=== PATIENT | male | born 2000 | race Caucasian/White ===

== ENCOUNTER 2018-09-25 20:06 | Emergency (ER) | payer OTHER ==
[~2018-09-25] VITALS: Ht 188 cm; Wt 113.6 kg
[2018-09-25] MEDS ORDERED: ACETAMINOPHEN 325 MG TAB PO ONE (21:00)
[2018-09-25] MEDS ORDERED: NS 1,000 ML IV ONE (23:15)
[2018-09-25] MEDS ORDERED: KETOROLAC 30 MG/ML VIAL (J1885) IV ONE (23:15)
[2018-09-25] MEDS ORDERED: METOCLOPRAMIDE INJ 10MG/2ML VIAL (J2765) IV ONE (23:15)
[2018-09-25] MEDS ORDERED: diphenhydrAMINE INJ 50MG/ML VIAL (J1200) IV ONE (23:15)
[2018-09-26 00:08] LABS: BASO % 0.3 % (0.0-1.0); EOS % 0.2 % (0.0-3.0); HEMATOCRIT 40.7 % (42.0-52.0); HEMOGLOBIN 14.1 g/dl (13.5-17.5); LYMPH # 1.7 10^3/uL (1.5-6.5); MEAN CORPUSCULAR HEMOGLOBIN 28.7 pg (27.0-33.0); MEAN CORPUSCULAR HGB CONC 34.6 g/dl (32.0-36.5); MEAN CORPUSCULAR VOLUME 82.9 fl (80.0-96.0); MONO # 1.5 10^3/uL (0.0-0.8); MONO % 12.8 % (0.0-5.0); NEUTROPHILS # 8.2 10^3/uL (1.8-7.7); NEUTROPHILS % 70.9 % (36.0-66.0); PLATELET COUNT, AUTOMATED 205 10^3/uL (150-450); RED BLOOD COUNT 4.91 10^6/uL (4.30-6.10); WHITE BLOOD COUNT 11.6 10^3/uL (4.0-10.0)
[2018-09-26 00:25] LABS: ALT/SGPT 20 U/L (12-78); BILIRUBIN,DIRECT 0.4 MG/DL (0.0-0.2); BILIRUBIN,TOTAL 2.1 MG/DL (0.2-1.0); BLOOD UREA NITROGEN 14 MG/DL (7-18); CARBON DIOXIDE LEVEL 25 MEQ/L (21-32); CHLORIDE LEVEL 101 MEQ/L (98-107); CREATININE FOR GFR 1.13 MG/DL (0.70-1.30); GLUCOSE, FASTING 97 MG/DL (70-100); POTASSIUM SERUM 3.8 MEQ/L (3.5-5.1); SODIUM LEVEL 138 MEQ/L (136-145); TOTAL PROTEIN 7.5 GM/DL (6.4-8.2)
[2018-09-26] MEDS ORDERED: LevoFLOXacin 750 MG TABLET PO ONE (01:45)
[2018-09-26] MEDS ORDERED: LEVA750T7 PO (01:46)
[2018-09-26 02:08] VITALS: BP 122/62
--- NOTE | 2018-09-26 07:46 | REP ---
Clinical: Systemic inflammatory response syndrome. Technique: PA and lateral. Findings: Very subtle right lower lobe infiltrate noted. No effusion. No pneumothorax. Mediastinum and cardiac silhouette normal. Skeletal structures intact. Impression: Right lower lobe infiltrate. Follow-up to resolution recommended. Electronically Signed by Bryon Schwab MD 09/26/2018 07:37 A
== END 2018-09-26 02:10 | disposition home or self-care (01) ==
LOC: M ED 20:06
DX: J18.9 Pneumonia, unspecified organism (principal)
CPT/HCPCS: 71046; 80048; 80076; 83605; 85025; 87040; 87486; 87581; 87633; 87798; 87880; 93041; 94760; 96361; 96374; 96375; 99284; J1200; J1885; J2765

== ENCOUNTER 2022-10-12 18:25 | Emergency (ER) | payer BC, OTHER ==
[~2022-10-12] VITALS: Ht 185.4 cm; Wt 114.8 kg
[~2022-10-12 18:25] MED LIST: LEVA750T7 PO
[2022-10-12 20:03] LABS: BASO # 0.1 10^3/uL (0.0-0.2); BASO % 0.3 % (0.0-1.0); EOS % 0.1 % (0.0-3.0); HEMATOCRIT 44.6 % (42.0-52.0); HEMOGLOBIN 15.4 g/dl (13.5-17.5); LYMPH # 1.5 10^3/uL (1.5-5.0); LYMPH % 8.4 % (24.0-44.0); MEAN CORPUSCULAR HEMOGLOBIN 29.5 pg (27.0-33.0); MEAN CORPUSCULAR HGB CONC 34.5 g/dl (32.0-36.5); MEAN CORPUSCULAR VOLUME 85.4 fl (80.0-96.0); MONO # 0.6 10^3/uL (0.0-0.8); MONO % 3.1 % (2.0-8.0); NEUTROPHILS # 15.5 10^3/uL (1.5-8.5); NEUTROPHILS % 87.4 % (36.0-66.0); PLATELET COUNT, AUTOMATED 317 10^3/uL (150-450); RED BLOOD COUNT 5.22 10^6/uL (4.30-6.10); WHITE BLOOD COUNT 17.7 10^3/uL (4.0-10.0)
[2022-10-12 20:27] LABS: LIPASE 29 U/L (12-53)
[2022-10-12 20:30] LABS: ALBUMIN 4.8 G/DL (3.2-5.2); ALKALINE PHOSPHATASE 69 U/L (46-116); ALT/SGPT 106 U/L (7.0-40); AST/SGOT 93 U/L (<34); BILIRUBIN,DIRECT 0.5 MG/DL (<0.4); BILIRUBIN,TOTAL 1.7 MG/DL (0.3-1.2); BLOOD UREA NITROGEN 16 MG/DL (9-23); CALCIUM LEVEL 10.3 MG/DL (8.5-10.1); CARBON DIOXIDE LEVEL 24 MMOL/L (20-31); CHLORIDE LEVEL 106 MMOL/L (98-107); CREATININE FOR GFR 0.79 MG/DL (0.70-1.30); GLOMERULAR FILTRATION RATE > 60.0 (>60); GLUCOSE, FASTING 105 MG/DL (60-100); POTASSIUM SERUM 4.4 MMOL/L (3.5-5.1); SODIUM LEVEL 141 MMOL/L (136-145); TOTAL PROTEIN 8.1 G/DL (5.7-8.2)
[2022-10-13] MEDS ORDERED: NS 1,000 ML IV STA ×2 (00:18)
[2022-10-13] MEDS ORDERED: ONDANSETRON 4MG 2ML VIAL IV ONE (00:30)
[2022-10-13] MEDS ORDERED: ISOVUE-370 76% 100ML VIAL As Ordered ONE (00:55)
[2022-10-13] MEDS ORDERED: FAMOTIDINE IV BAG 20 MG in IV 1 EA IV ONE (00:55)
[2022-10-13] MEDS ORDERED: PANTOPRAZOLE 40MG VIAL IV ONE (00:55)
[2022-10-13] MEDS ORDERED: SUCRALFATE 1 GM TAB PO ONE (00:55)
[2022-10-13] MEDS ORDERED: CARA1TAB6 PO (02:12)
[2022-10-13] MEDS ORDERED: PEPC1TAB5 PO (02:12)
[2022-10-13] MEDS ORDERED: PROT1TAB2 PO (02:12)
[2022-10-13 02:58] VITALS: BP 139/69; TEMP 98.4; O2SAT 97
== END 2022-10-13 02:53 | disposition home or self-care (01) ==
LOC: M ED 18:25
DX: R10.13 Epigastric pain (principal); R16.0 Hepatomegaly, not elsewhere classified; K76.0 Fatty (change of) liver, not elsewhere classified
CPT/HCPCS: 74177; 76705; 80048; 80076; 83605; 83690; 85025; 96374; 96375; 99284; C9113; J2405; Q9967; S0028